=== PATIENT | male | born 1960 | race Caucasian/White ===

== ENCOUNTER 2019-03-24 05:00 | Day surgery (SDC) | payer OTHER ==
[2019-03-24] MEDS ORDERED: LACTATED RINGERS 1,000 ML IV.SOLN IV ONE ×2 (08:48)
[2019-03-24] MEDS ORDERED: LIDOCAINE HCL 2% PF 100MG/5ML VIAL IJ ONE (08:48)
[2019-03-24] MEDS ORDERED: BACITRACIN 50,000 UNIT VIAL IR ONE (08:48)
[2019-03-24] MEDS ORDERED: SUGAMMADEX SODIUM 200 MG/2 ML VIAL IV ONE (08:48)
[2019-03-24] MEDS ORDERED: THROMBIN (RECOMBINANT) 20,000 UNIT VIAL TP ONE (08:48)
[2019-03-24] MEDS ORDERED: SEVOFLURANE 250 ML LIQUID IH ONE (08:48)
[2019-03-24] MEDS ORDERED: DEXAMETHASONE SODIUM PHOSPHATE 10 MG/ML VIAL ONE (08:48)
[2019-03-24] MEDS ORDERED: ONDANSETRON HCL/PF 4 MG/ 2ML VIAL ONE (08:48)
[2019-03-24] MEDS ORDERED: HYDROmorphone HCL/PF 2 MG/ML VIAL ONE (08:48)
[2019-03-24] MEDS ORDERED: ROCURONIUM BROMIDE 10 MG/ML 5ML VIAL ONE (08:48)
[2019-03-24] MEDS ORDERED: GELATIN SPONGE,ABSORB/PORCINE (SIZE 100) 1 EACH SPONGE TP ONE (08:48)
[2019-03-24] MEDS ORDERED: MIDAZOLAM HCL 2 MG/2 ML VIAL ONE (08:48)
[2019-03-24] MEDS ORDERED: ceFAZolin SODIUM 1 GM VIAL ONE (08:48)
[2019-03-24] MEDS ORDERED: PROPOFOL 200 MG/20 ML VIAL IV ONE (08:48)
[2019-03-24] MEDS ORDERED: PHENYLEPHRINE HCL 10 MG/1 ML ONE (08:48)
[2019-03-24] MEDS ORDERED: LEVALBUTEROL NEB 1.25 MG/3 ML VIAL.NEB NEB ONE (08:48)
[2019-03-24] MEDS ORDERED: fentaNYL CITRATE/PF 100 MCG/2 ML INJ. ONE (11:14)
[2019-03-25 14:45] VITALS: BP 148/92
--- NOTE | 2019-04-01 13:08 | Operative Note ---
PROCEDURE DATE: 03/24/2019 PREOPERATIVE DIAGNOSIS: Degenerative disc disease, spondylolisthesis, central and bilateral foraminal stenosis, and recurrent herniated nucleus pulposus, L5-S1. POSTOPERATIVE DIAGNOSIS: Degenerative disc disease, spondylolisthesis, central and bilateral foraminal stenosis, and recurrent herniated nucleus pulposus, L5-S1. PROCEDURES PERFORMED: 1. Bilateral laminectomy, L5-S1. 2. Laminectomy with radical excision of herniated nucleus pulposus, L5-S1. 3. Reoperative laminectomy, bilateral L5. 4. Placement of pedicle screws bilaterally at L5-S1. 5. Manipulation of spine under general anesthesia with reduction of spondylolisthesis at L5-S1. 6. Placement of prosthetic intervertebral fusion cage at L5-S1, PEEK. 7. Transforaminal lumbar interbody fusion of the lumbar spine using autologous bone graft at L5-S1. 8. Posterolateral transverse process fusion of the lumbar spine at L5-S1 utilizing autologous bone graft. SURGEON: Jose Francisco Gao Jr., M.D. TAX CONSULTANT: WESLEY Lackey BC ANESTHESIA: General. COMPLICATIONS: None. CONDITION FOLLOWING THE PROCEDURE: Good. OPERATIVE FINDINGS: This patient has painful spondylolisthesis with herniated nucleus pulposus, bilateral foraminal and central stenosis causing a host of symptoms that have been unresponsive to prolonged conservative management. He is counseled regarding options and, considering the instability, is only a candidate for a fusion with reduction of the spondylolisthesis. The spondylolisthesis reduction was accomplished. In addition, intervertebral disc height was restored by virtue of the pedicle screw and poncho construct. An interbody PEEK cage was placed and copious bone grafting to the left and right side anterior and posterior to the cage was accomplished, along with the posterolateral fusion. DESCRIPTION OF PROCEDURE: The patient was taken to the operating room and anesthesia induced. In the prone position, the back was thoroughly scrubbed, sterilely prepped and draped. A longitudinal incision was made after using a spinal needle to determine the radiographic area for incision appropriate for L5-S1 exposure. Paraspinous muscles were stripped from the posterior spinous process lamina and facet joints at L5 and S1. The L5 lamina was then completely removed and Kerrison rongeurs were used to widen at the medial aspect of the pedicle. A complete foraminotomy was then performed on the left and right side, taking great care in the area of previous surgery. Pedicle screws were then placed by the usual technique at L5 and S1 and confirmed to be in the ideal location radiographically. The distance was measured and rods were affixed while conducting a reduction maneuver to reduce the spondylolisthesis at L5-S1. Bipolar electrocautery was used to achieve hemostasis on the right side of the spinal canal as the dura was retracted and a half-inch osteotome used to perform an annulotomy posterior and superior to the margins of the disc space at L5-S1 on the right side. Pituitary rongeurs were inserted and a radical discectomy was carried out. This was followed by endplate scrapers which were gradually increased to the 11-mm size, taking care to be sure the cartilage was removed from the subchondral bone anterior, posterior, left and right to the extremities of the disc space and also checked radiographically. The left side of the disc space was then packed with autologous bone graft acquired from the laminectomies and decompressions. The cage of the 13-mm size was then packed with bone graft and placed into the disc space all the way to the anterior margin. The right side of the cage was then packed with autologous bone graft as well, as was the posterior aspect of the countersunk cage. Gelfoam was then placed over the exposed dura and exiting nerve roots which had been decompressed in their entirety through a bilateral foraminotomy. Radiographically, all instrumentation was determined to be in the ideal location and upon this verification, the remaining autologous bone graft was used to construct a posterolateral fusion. This was augmented with osteoconductive bone graft material using the posterolateral fusion only in addition to the remaining morselized bone graft. The wound was then closed in layers and a drain was placed. The patient was taken to the recovery room in good condition where normal motor and sensory examination was determined to be present. JOSE FRANCISCO GAO JR., M.D. MARY/ariella (Please copy [facility] provider when applicable) Job #[id number] PEPE
== END 2019-03-24 11:24 | disposition other institution (70) ==
LOC: OPSURG 05:00
PROVIDERS: ATTEND Orthopaedic Surgery
DX: M48.061 Spinal stenosis, lumbar region without neurogenic claudication (principal); M51.27 Other intervertebral disc displacement, lumbosacral region; M51.37 Other intervertebral disc degeneration, lumbosacral region; M43.17 Spondylolisthesis, lumbosacral region
CPT/HCPCS: 20930; 20936; 22633; 22840; 22853; 63042; 86885; 86900; 86901; 86920; J0690; J1170; J2001; J2250; J2370; J2405; J2704; J3010; J3490; J7120; J7614

== ENCOUNTER 2019-03-24 11:25 | Inpatient (IN) | payer OTHER ==
[2019-03-24 12:22] VITALS: BMI 37.2
[2019-03-24] MEDS ORDERED: IPRATROPIUM/ALBUTEROL SULFATE 3 ML AMPUL.NEB NEB PRN (12:37)
[2019-03-24] MEDS ORDERED: oxyCODONE/ACETAMINOPHEN 5/325 TABLET PO PRN (12:37)
[2019-03-24] MEDS ORDERED: ONDANSETRON HCL/PF 4 MG/ 2ML VIAL IVP PRN (12:37)
--- NOTE | 2019-03-24 12:48 | History and Physical Report ---
History of Present Illnes - History of Present Illness Reason for Visit: TLIF L5S1 History of Present Illness: This is a 58 year old male with chronic low back pain who has failed conservative therapy and presented to Dr. Castro's office. Dr. Castro felt that he would benefit from TLIF at L5S1 and he was taken to the OR for this procedure today. He comes to the floor with a hemovac in place. - Past Medical History BOND MANAGER: Migraine, Other (TBI) Psych: Anxiety, Depression, Other (PTSD) - Past Surgical History Past Surgical History: Appendectomy, Cholecystectomy, Total Knee Replacement (bilateral), Other (Carpel Tunnel Release, rotator cuff repair ) - Past Social History Smoke: <1 pack per day Alcohol: None Drugs: None Lives: With Family Domestic Violence: Negative - Health Maintenance Health Maintenance: Cholesterol Influenza Vaccine: Current for this Influenza Season Pneumonia Vaccine: Yes Resuscitation Status: Resusciation Status Resuscitation Status Full Code - Unable to Obtain History Unable to Obtain: No Review of Systems - Review of Systems Constitutional: negative: Fever, Chills Eyes: negative: pain ENT: negative: Ear Pain, Ear Discharge Respiratory: negative: Cough, Dry Cardiovascular: negative: Chest Pain Gastrointestinal: negative: Nausea, Vomiting, Abdominal Pain Genitourinary: negative: Dysuria Musculoskeletal: Back Pain (at surgical site) Skin: negative: Rash Neurological: negative: Weakness, Numbness, Incoordination - Medications/Allergies Current Inpatient Medications: Current Inpatient Medications Albuterol/Ipratropium (Duoneb) 3 ml NEB Q4 PRN PRN Reason: Wheezing Stop: 04/23/19 12:36 Aspirin (Angie) 81 mg PO DAILY [facility] Stop: 04/24/19 08:59 Docusate Sodium (Colace) 100 mg PO BID [facility] Stop: 03/26/19 09:01 Fentanyl Citrate (Sublimaze) 100 mcg IVP Q2H PRN PRN Reason: For Severe Pain 8-10 Stop: 03/25/19 12:36 Gabapentin (Neurontin) 300 mg PO TID [facility] Stop: 04/23/19 12:59 Heparin Sodium (Porcine) (Heparin) 5,000 unit SQ Q12 [facility] Stop: 04/23/19 20:59 Hydroxyzine HCl (Atarax) 50 mg PO BID [facility] Stop: 04/23/19 20:59 Cefazolin Sodium 1 gm/ Sodium (Chloride) 50 mls @ 100 mls/hr IV Q8H [facility] Stop: 03/24/19 23:59 Sodium Chloride (Normal Saline) 1,000 mls @ 100 mls/hr IV Q10H [facility] Stop: 03/25/19 12:44 Mirtazapine (Remeron) 15 mg PO HS [facility] Stop: 04/23/19 20:59 Miscellaneous (Patient Own Med) 1 each PO DAILY [facility] Stop: 04/24/19 08:59 Ondansetron HCl (Zofran) 4 mg IVP Q6H PRN PRN Reason: Nausea / Vomiting Stop: 03/28/19 12:36 Oxycodone/Acetaminophen (Percocet 5-325) 1 each PO Q4 PRN PRN Reason: For pain 1-4 out of 10 Stop: 04/23/19 12:36 Oxycodone/Acetaminophen (Percocet 5-325) 2 each PO Q4 PRN PRN Reason: Moderate pain 5-7 Stop: 04/23/19 12:36 Exam - Exam Vital Signs: Vital Signs (72 hours) 03/24/19 03/24/19 03/24/19 12:00 12:16 12:22 Temperature 97 F L 97 F L 97.4 F L Pulse Rate [ 88 88 86 Right] Respiratory 18 18 Rate Blood Pressure 155/95 155/95 130/92 [Right Arm] O2 Sat by Pulse 99 95 95 Oximetry General: Alert, Oriented to Person, Oriented to Place, Oriented to Time, Moderate distress (due to back pain) HEENT: Atraumatic, PERRLA, EOMI, Mouth Mucous membr. moist/[place], Edentulous Neck: No: Stridor Lungs: Clear to auscultation, Normal air movement, Speaks full Sentences. No: Respiratory Distress, Wheezes Cardiovascular: Regular rate, Normal S1, Normal S2 Murmur: No: Systolic Murmur Abdomen: Normal bowel sounds, Soft, No tenderness, No hepatospenomegaly Genitourinary: No: Other Male Genitourinary: No: Other Female Genitourinary: No: Other Integumentary: Normal, [place], Warm, Dry Extremities: No clubbing, No cyanosis, No edema, Other (Hemovac in place on back. Dressing is dry) Neurological: Normal gait Psych/Mental Status: Mental status NL Assessment/Plan - Assessment/Plan (1) Back pain, chronic Status: Acute Current Visit: Yes Qualifiers: Back pain location: low back pain Back pain laterality: bilateral Sciatica presence: without sciatica Qualified Code(s): M54.5 - Low back pain; G89.29 - Other chronic pain Assessment: s/p TLIF L5S1 Plan: Admitted for pain control, ambulation, IVF (2) Depression Status: Acute Current Visit: Yes Qualifiers: Depression Type: major depressive disorder Major depression recurrence: recurrent Active/Remission status: currently active Major depression episode severity: moderate Qualified Code(s): F33.1 - Major depressive disorder, recurrent, moderate Assessment: Continue Trintellix (3) Migraines Status: Acute Current Visit: Yes Qualifiers: Migraine type: unspecified Status migrainosus presence: without status migrainosus Intractability: not intractable Qualified Code(s): G43.909 - Migraine, unspecified, not intractable, without status migrainosus Assessment: No current headache (4) Anxiety Status: Acute Current Visit: Yes Assessment: Will write some prn alprazolam VTE Assessment - RISK FACTOR SCORE VTE RISK FACTOR SCORES: AGE 40-60 YEARS, ANTICIPATED BED CONFINEMENT OR IMMOBILIZATION > 24 HOURS (on heparin)
[2019-03-24] MEDS: 0.9 % SODIUM CHLORIDE 1,000 ML IV SCH ×2 (12:51→23:18)
[2019-03-24] MEDS: fentaNYL CITRATE/PF 100 MCG/2 ML INJ. IVP PRN ×3 (12:51→22:19)
[2019-03-24] MEDS: GABAPENTIN 300 MG CAPSULE PO SCH ×2 (13:28→17:43)
[2019-03-24] MEDS: ceFAZolin SODIUM 1 GM in 0.9 % SODIUM CHLORIDE 50 ML IV SCH ×2 (15:34→23:37)
[2019-03-24] MEDS: oxyCODONE/ACETAMINOPHEN 5/325 TABLET PO PRN ×2 (15:40→22:21)
[2019-03-24] MEDS ORDERED: SOUTH LOCK-UP KEY 1 EACH EACH MC ONE (19:44)
[2019-03-24] MEDS: hydrOXYzine HCL 25 MG TABLET PO SCH (19:53)
[2019-03-24] MEDS: DOCUSATE SODIUM 100 MG CAPSULE PO SCH (19:53)
[2019-03-24] MEDS: HEPARIN SODIUM 5000 UNIT/1 ML SQ SCH (19:54)
[2019-03-24] MEDS ORDERED: MIRTAZAPINE 15 MG TABLET PO SCH (21:00)
[2019-03-25] MEDS ORDERED: SOUTH LOCK-UP KEY 1 EACH EACH MC ONE (02:59)
[2019-03-25] MEDS: oxyCODONE/ACETAMINOPHEN 5/325 TABLET PO PRN (03:19)
[2019-03-25 06:52] LABS: eGFR (Non-African) > 60
[2019-03-25 08:08] LABS: BASOPHILS % 0.4 % (0.0-1.5); NEUTROPHILS # 14.3 # k/uL (1.4-7.7)
[2019-03-25] MEDS: DOCUSATE SODIUM 100 MG CAPSULE PO SCH (08:18)
[2019-03-25] MEDS: GABAPENTIN 300 MG CAPSULE PO SCH ×2 (08:18→12:38)
[2019-03-25] MEDS: HEPARIN SODIUM 5000 UNIT/1 ML SQ SCH (08:19)
[2019-03-25] MEDS ORDERED: ASPIRIN 81 MG CHEW TAB PO SCH (09:00)
[2019-03-25] MEDS ORDERED: PATIENT OWN MED 1 EACH EACH PO SCH (09:00)
--- NOTE | 2019-03-25 09:46 | Discharge Summary ---
Discharge Summary - Discharge [facility] Admission Date: 03/24/19 Discharge Date: 03/25/19 Discharge To: Home History of Present Illness: 58 year old male admitted with intractable back pain that did not respond to conservative measures. He was felt to be a good candidate for TLIF at L5S1, and was admitted for this procedure on March 24, 2019. He had approximately 600 cc of blood loss in the OR and a hemovac was placed postoperatively. Condition at Discharge: Stable Consultations this Visit: Other (Hospitalist service) Procedures this Visit: Other (TLIF L5S1) Allergies/Adverse Reactions: Allergies Allergy/AdvReac Type Severity Reaction Status Date / Time No Known Allergies Allergy Verified 03/24/19 13:13 Patient Problems: Current Active Problems Problem Status Onset Anxiety Acute Back pain, chronic Acute Depression Acute Migraines Acute Discharge Summary: He was discharged to home with resumption of his usual medications and prescriptions for percocet 7.5/325 1-2 po every four to six hours prn and flexeril 10 mg 1/2 to 1 po TID prn back spasm. He will follow up with Dr. Castro's office as scheduled. Routine postoperative teaching. Hospital Course: He was able to ambulate well on the day of surgery. Initial drainage into hemovac was 250+cc in his first shift, however overnight, he only had 45cc of drainage. I consulted Dr. Castro by phone and he agreed that it could be removed with this little drainage. His pain was well controlled.
[2019-03-25] MEDS: hydrOXYzine HCL 25 MG TABLET PO SCH (10:19)
[2019-03-25 14:45] VITALS: BP 148/92
== END 2019-03-25 14:30 | disposition home or self-care (01) | DRG 460 ==
LOC: SOUTH 11:25
PROVIDERS: ADMIT Family Medicine; ATTEND Family Medicine
PROC: 0SG30AJ Fusion of Lumbosacral Joint with Interbody Fusion Device, Posterior Approach, Anterior Column, Open Approach (ICD-10-PCS; principal; 2019-03-24)
PROC: 0ST40ZZ Resection of Lumbosacral Disc, Open Approach (ICD-10-PCS; 2019-03-24)
PROC: 00NY0ZZ Release Lumbar Spinal Cord, Open Approach (ICD-10-PCS; 2019-03-24)
DX: M51.37 Other intervertebral disc degeneration, lumbosacral region (principal); F33.1 Major depressive disorder, recurrent, moderate; G43.909 Migraine, unspecified, not intractable, without status migrainosus; M43.17 Spondylolisthesis, lumbosacral region; M48.07 Spinal stenosis, lumbosacral region; M51.27 Other intervertebral disc displacement, lumbosacral region; G89.29 Other chronic pain; F41.9 Anxiety disorder, unspecified; F17.210 Nicotine dependence, cigarettes, uncomplicated; Z90.49 Acquired absence of other specified parts of digestive tract; Z96.653 Presence of artificial knee joint, bilateral; Z79.899 Other long term (current) drug therapy; Z79.82 Long term (current) use of aspirin
CPT/HCPCS: 80048; 85025; 97116; 97161; 97165; 97530; 97535; A9270; J0690; J1644; J3010; J7030; 99221; 99238